=== PATIENT | female | born 1945 | race Caucasian/White ===

== ENCOUNTER 2020-02-02 12:20 | Observation (INO) | payer MEDICARE, OTHER ==
[~2020-02-02] VITALS: Ht 165.1 cm; Wt 77.1 kg
[~2020-02-02 12:20] MED LIST: DAYPRO600 MG PO; ESTRADIOL 1 MG T1 M1 PO; LEVOTHYROXIN0.075 MG PO; MULTIVITAMINS1 EAC7; PREVACID30 MG PO; REGLAN 10 MG TA10 MG PO; STOOL SOFTENER100 MG; VITAMIN B-12500 MCG; ZOLOFT25 MG PO
[2020-02-02 12:26] VITALS: BP 144/63
[2020-02-02] MEDS ORDERED: OMEPRAZOLE40 MG PO (12:33)
[2020-02-02] MEDS ORDERED: VITAMIN D31250 MCG PO (12:34)
[2020-02-02] MEDS ORDERED: NATURAL LUTEIN20 MG PO (12:34)
[2020-02-02] MEDS ORDERED: CYMBALTA60 MG PO (12:34)
[2020-02-02] MEDS ORDERED: ALIVE ONCE DAI1 EACH PO (12:35)
[2020-02-02] MEDS ORDERED: REGLAN10 MG PO (12:35)
[2020-02-02] MEDS ORDERED: NEURONTIN100 MG PO (12:35)
[2020-02-02] MEDS ORDERED: VITAMIN B-121000 MC2 SUBLING (12:35)
[2020-02-02] MEDS ORDERED: ESTRACE0.5 MG PO (12:36)
[2020-02-02] MEDS ORDERED: LIPITOR 20 MG T20 M1 PO (12:36)
[2020-02-02] MEDS ORDERED: PROBIOTIC1 EAC7 PO (12:37)
[2020-02-02] MEDS ORDERED: SLEEP AID25 M1 PO (12:37)
[2020-02-02] MEDS ORDERED: STOOL SOFTENER100 MG PO (12:37)
[2020-02-02 12:41] LABS: ABSOLUTE EOSINOPHILS 0.1 thou/uL (0.0-0.7); ABSOLUTE LYMPHOCYTES 2.3 thou/uL (0.8-5.3); ABSOLUTE MONOCYTES 0.3 thou/uL (0.0-1.2); ABSOLUTE NEUTROPHILS 4.3 thou/uL (1.6-8.1); BASOPHILS 0.6 %; EOSINOPHILS 1.1 %; HEMATOCRIT 44.1 % (37.0-47.0); HEMOGLOBIN 15.2 gm/dL (12.0-15.0); LYMPHOCYTES 32.8 %; MCHC 34.4 g/dL (28.0-37.0); MCV 90.2 fL (80.0-100.0); MONOCYTES 4.1 %; MPV 8.8 fl. (7.2-11.1); NUCLEATED RBCS 0 /100WBC; PLATELET COUNT* 271 thou/uL (150-400); POLYS 61.4 %; RBC 4.89 mil/uL (4.20-5.00); RDW-CV 13.6 % (10.5-14.5)
[2020-02-02 12:49] LABS: CALCIUM 9.1 mg/dL (8.5-10.1); CREATININE 0.6 mg/dL (0.6-1.3); POTASSIUM 3.7 mmol/L (3.5-5.1)
[2020-02-02 12:54] LABS: ALBUMIN 4.1 g/dL (3.4-5.0); TOTAL BILIRUBIN 0.5 mg/dL (<0.1-1.0); TOTAL PROTEIN 7.3 g/dL (6.4-8.2)
[2020-02-02 12:55] LABS: INFLUENZA A ANTIGEN Negative (Negative); INFLUENZA B ANTIGEN Negative (Negative)
[2020-02-02 14:01] LABS: APTT 23.1 Seconds (25.0-31.3); PROTIME 10.4 Seconds (9.20-11.50)
[2020-02-02 14:02] LABS: URINE BILIRUBIN NEGATIVE (Negative); URINE BLOOD TRACE (Negative); URINE CLARITY CLEAR; URINE COLOR YELLOW; URINE GLUCOSE-RANDOM TRACE (Negative); URINE KETONES TRACE (Negative); URINE LEUKOCYTES-REFLEX NEGATIVE (Negative); URINE NITRITE-REFLEX NEGATIVE (Negative); URINE PROTEIN NEGATIVE (Negative); URINE SPECIFIC GRAVITY 1.025 (1.005-1.030); URINE UROBILINOGEN 0.2 E.U./dl (0.2-1.0)
--- NOTE | 2020-02-02 14:46 | EKG ---
[place] [address] ELECTROCARDIOGRAM REPORT Name: FAUSTINO DODSON Room: [place] [address] ADM IN [facility]#: [id number] Admission: 02/02/20 Attend Phys: Fidelina new Sa Discharge: Date of : 47 Date of Service: 02/02/20 1240 Report #: [id number] THIS REPORT FOR: //name// [facility] ED Test Date: 2020-02-02 Test Time: 12:40:03 Pat Name: FAUSTINO DODSON Department: Room: [facility] Gender: F Mental Health Worker: : 1945 Requested By: Brenden Larsen Order Number: [id number] MD: Craig Mcmahon Measurements Intervals [place] Rate: 79 P: 54 ME: 147 QRS: 80 QRSD: 103 T: 77 QT: 404 QTc: 464 Interpretive Statements Sinus rhythm Compared to ECG 06/18/2015 16:33:14 No significant changes Electronically Signed On 02-02-2020 14:44:43 CDT by Craig Mcmahon [email or web address] <ELECTRONICALLY SIGNED> By: Craig Mcmahon MD, FAC 02/02/20 1444 1240 1240 Craig Mcmahon MD, [facility] /EPI
[2020-02-02 15:07] VITALS: BP 144/66
[2020-02-02 15:30] VITALS: BP 138/72
[2020-02-02 16:11] LABS: AMP/METHAMP Negative (Negative); BARBITURATES Negative (Negative); BENZODIAZEPINES Negative (Negative); COCAINE Negative (Negative); METHADONE Negative (Negative); OPIATES Negative (Negative); PCP Negative (Negative); THC Negative (Negative)
--- NOTE | 2020-02-02 16:33 | 2DMMODE ---
[place] [address] 2 D/M-MODE ECHOCARDIOGRAM Name: FAUSTINO DODSON Room: [address] IN [facility]#: [id number] Admission: 02/02/20 Attend Phys: Fidelina new Sa Discharge: Date of : 47 Date of Service: 02/02/20 1632 Report #: [id number] THIS REPORT FOR: cc: Maris Vega MD, Jennifer S. MD Blick, David R. MD [facility] ~ APPROVED REPORT Study performed: 02/02/2020 15:53:28 EXAM: Comprehensive 2D, Doppler, agitated saline, and color-flow Echocardiogram Patient Location: In-Patient Room #: [facility] Status: routine BSA: 1.85 HR: 74 bpm BP: 144/66 mmHg Rhythm: NSR Other Information Study Quality: Good Indications CVA/TIA Echo Enhancing Agent Indication: Rule out Shunt Agent(s) / Amount(s) Used: Agitated Saline 10 cc 2D Dimensions IVSd: 10.39 (7-11mm) LVOT Diam: 20.24 (18-24mm) LVDd: 40.20 mm PWd: 8.68 (7-11mm) Ascending Ao: 28.63 (22-36mm) LVDs: 23.97 (25-40mm) Aortic Root: 32.93 mm Volumes Left Atrial Volume (Systole) LA ESV Index: 24.20 mL/m2 Aortic Valve AoV Peak Cheko.: 1.10 m/s AO Peak Gr.: 4.84 mmHg LVOT Max P.52 mmHg AO Mean Gr.: 2.80 mmHg LVOT Mean P.35 [place] [address] 2 D/M-MODE ECHOCARDIOGRAM Name: FAUSTINO DODSON [place] Room: [address] IN M.R.#: [id number] Admission: 02/02/20 Attend Phys: Fidelina new Sa Discharge: Date of : 47 Date of Service: 02/02/20 1632 Report #: [id number] LVOT Max V: 1.06 m/s AO V2 VTI: 25.97 cm LVOT Mean V: 0.72 m/s COLEEN (VTI): 3.10 cm2 LVOT V1 VTI: 25.06 cm Mitral Valve E/A Ratio: 1.13 MV Decel. Time: 248.63 ms MV E Max Cheko.: 0.85 m/s MV PHT: 72.10 ms MVA (PHT): 3.05 cm2 TDI E/Lateral E': 6.54 E/Medial E': 8.50 Medial E' Cheko.: 0.10 m/s Lateral E' Cheko.: 0.13 m/s Pulmonary Valve PV Peak Cheko.: 0.90 m/s PV Peak Gr.: 3.23 mmHg Tricuspid Valve RAP Estimate: 5.00 mmHg TR Peak Gr.: 20.10 mmHg RVSP: 25.00 mmHg PA Pressure: 25.00 mmHg Left Ventricle The left ventricle is normal size. There is normal LV segmental wall motion. There is normal left ventricular wall thickness. Left ventricular systolic function is normal. The left ventricular ejection fraction is within the normal range. LVEF is 60-65%. The left ventricular diastolic function is normal. Right Ventricle The right ventricle is normal size. The right ventricular systolic function is normal. Atria The left atrium size is normal. Interatrial septum is intact without evidence of ASD or PFO. The right atrium size is normal. Aortic Valve The aortic valve is normal in structure. No aortic regurgitation is present. There is no aortic valvular stenosis. Mitral Valve The mitral valve is normal in structure. Trace mitral regurgitation. No evidence [place] [address] 2 D/M-MODE ECHOCARDIOGRAM Name: FAUSTINO DODSON Room: [address] IN M.R.#: [id number] Admission: 02/02/20 Attend Phys: Fidelina new Sa Discharge: Date of : 47 Date of Service: 02/02/20 1632 Report #: [id number] Tricuspid Valve The tricuspid valve is normal in structure. Trace tricuspid regurgitation. Pulmonic Valve Pulmonic valve is not well visualized. There is no pulmonic valvular regurgitation. Great Vessels The aortic root is normal in size. IVC is normal in size and collapses >50% with inspiration. Pericardium There is no pericardial effusion. <Conclusion> LVEF is 60-65%. Interatrial septum is intact without evidence of ASD or PFO. <ELECTRONICALLY SIGNED> By: Craig Mcmahon MD, FACC 02/02/20 163 163 31 Craig Mcmahon MD, FACC /INF
[2020-02-02 19:45] VITALS: BP 135/73
[2020-02-03 00:25] VITALS: BP 131/74
[2020-02-03 04:15] VITALS: BP 140/84
[2020-02-03 05:37] LABS: ALBUMIN 3.3 g/dL (3.4-5.0); ALKALINE PHOSPHATASE 60 U/L (46-116); ANION GAP 10 mmol/L (7-16); BUN 9 mg/dL (7-18); CALCIUM 7.8 mg/dL (8.5-10.1); CHLORIDE 111 mmol/L (98-107); CHOLESTEROL 149 mg/dL (<200); CO2 23 mmol/L (21-32); CREATININE 0.6 mg/dL (0.6-1.3); GLUCOSE 97 mg/dL (70-99); HDL CHOLESTEROL 55 mg/dL (>40); LDL CHOLESTEROL 74 mg/dL (<100); POTASSIUM 3.2 mmol/L (3.5-5.1); SGOT 17 U/L (15-37); SGPT 25 U/L (30-65); SODIUM 144 mmol/L (136-145); TC:HDL 2.7 Ratio (Not establshd); TOTAL BILIRUBIN 0.4 mg/dL (<0.1-1.0); TOTAL PROTEIN 6.2 g/dL (6.4-8.2); TRIGLYCERIDE 101 mg/dL (<150); VLDL 20 mg/dL (<40)
[2020-02-03 05:43] LABS: SERUM ASSESSMENT CLEAR
[2020-02-03 08:00] VITALS: BP 139/79
[2020-02-03 12:38] VITALS: BP 141/81
[2020-02-03] MEDS ORDERED: VITAMIN D3250 MC1 PO (13:22)
[2020-02-03 13:41] VITALS: BP 141/81
[2020-02-04 03:07] LABS: GLYCOHEMOGLOBIN (HGB A1C) 5.3 % (4.8-5.6)
== END 2020-02-03 15:00 | disposition home or self-care (01) ==
LOC: M.ERS 12:20 → M.TBA-ER 14:21 → M.2W 14:21
PROVIDERS: Nurse Practitioner Psychiatric/Mental Health; ADMIT Family Medicine
DX: R42 Dizziness and giddiness (principal); E03.9 Hypothyroidism, unspecified; K21.9 Gastro-esophageal reflux disease without esophagitis; F41.9 Anxiety disorder, unspecified; F32.9 Major depressive disorder, single episode, unspecified; K59.00 Constipation, unspecified; R11.2 Nausea with vomiting, unspecified